=== PATIENT | female | born 1945 ===

== ENCOUNTER → 2016-12-07 | Outpatient (CLI) | payer MEDICARE, BC ==
[~2016-12-07] MED LIST: ADVIL200 MG PO; ALDACTONE25 MG PO; ASCORBIC ACID500 MG PO; BRILINTA90 MG PO; ECOTRIN325 MG PO; FLEXERIL10 MG PO; HYDRODIURIL25 MG PO; LEVOTHROID (SY50 MCG PO; LIPITOR80 MG PO; NITROSTAT0.4 MG SL; NORVASC10 MG PO; PLAVIX75 MG PO; PROTONIX40 MG PO; THERAGRAN-M1 TAB PO; TYLENOL EXTRA500 MG PO; ULTRAM50 MG PO; VITAMIN B-12500 MCG PO; ZEBETA5 MG PO
[2016-12-07 13:23] LABS: ALBUMIN 3.8 gm/dL (3.5-5.0); ALK PHOS 88 IU/L (33-138); ALT 30 IU/L (12-78); ANION GAP 13.7 (10.0-19.0); AST 28 IU/L (10-40); BLOOD UREA NITROGEN 19 mg/dL (6-24); CALCIUM 8.8 mg/dL (8.5-10.5); CHLORIDE 94 mMol/L (96-110); CO2 26 mMol/L (22-32); CPK 97 IU/L (21-215); CREATININE 1.1 mg/dL (0.5-1.1); ESTIMATED GFR (MDRD EQUATION) 49; POTASSIUM 4.7 mMol/L (3.7-5.1); SODIUM 129 mMol/L (135-145); TOTAL BILIRUBIN 0.3 mg/dL (0.0-1.5); TOTAL PROTEIN 8.2 g/dL (6.0-8.4)
== END ==
LOC: LGSOS 12:46
PROVIDERS: Internal Medicine Interventional Cardiology
DX: I10 Essential (primary) hypertension (principal)

== ENCOUNTER → 2016-12-08 | Outpatient (CLI) | payer MEDICARE, BC ==
--- NOTE | ~2016-12-08 | ESTC ---
Cardiac Perfusion Imaging Demographics Patient Name RUTH ANN Awan Gender Female Patient Number [id number] Race Visit Number [id number] Ethnicity Corporate ID Room Number Accession Number [id number] Height 67 inches Date of 1945 Weight 168 pounds Interpreting iKmi King Date of study 12/08/2016 Physician Supervising /SUZANNA King NM Technologist Jovanna Zarate MD Ordering Physician Stress tissue technician Stress ECG Reading Kimi King Nurse Cuong Wang RN Physician The procedure was explained in detail to the patient. Risks, complications and alternative treatments were reviewed. Written consent was obtained. Medications Reviewed with Patient prior to Procedure. Procedure Procedure Type: Nuclear Stress Test:Exercise, Cardiolite Stress Test Procedure Start time: 12/08/2016 09:00 End time: 12/08/2016 09:17 Indications: Shortness of breath. Risk Factors The patient risk factors include:prior PCI on 05/13/2016;treated hypercholesterolemia, treated hypertension, family history of premature CAD, chronic lung disease and dyslipidemia. Conclusions Summary DTS: 7. Inferolateral large,mild to moderate reversible defect. LVEF:79%. Normal WM. Stress Protocols Resting ECG RSR. Pre-stress physical exam: Un changed. Predicted HR: 148 bpm ECG Findings No ECG changes suggestive of ischemia. Arrhythmias Occasional PVCs. Symptoms Fatigue. SOB. Stress Interpretation Duration: 6:49 mins. METs: 7. DP: 23 K. Achieved: 88% MPHR. No chest pain. Reason for termination: Fatigue and SOB. EKG: No ischemia. Occasional PVCs. DTS: 6 (Low risk). Imaging Results High risk findings Summed scores - Summed stress score: 13 - Summed rest score: 1 - Summed difference score: 12 Stress ejection Ejection fraction:80 % EDV :50 ml ESV :10 ml Stroke volume :40 ml LV mass :90 gr LV size:Normal Normal LV function Imaging Protocols Rest Stress Isotope:Tc99m Sestamibi IV Isotope: Tc99m Sestamibi IV Isotope dose:11.5 mCi Isotope dose:32.8 mCi Date:12/08/2016 07:10 Date:12/08/2016 09:07 Technique: SPECT Technique: Gated Supine SPECT Supine Scan Time:45-60 minutes post Scan Time:45-60 minutes post injection injection Medical History Admission Data Admission date: 12/08/2016 Admission Time: 06:29 Hospital Status: Outpatient. Signatures dtt: Christine Bolden dtd: 12/08/16 0900 Physician Self Edit
== END | disposition disaster alternative care site (69) ==
LOC: GRAD 06:29
DX: R06.02 Shortness of breath (principal); E78.00 Pure hypercholesterolemia, unspecified; E78.5 Hyperlipidemia, unspecified; I10 Essential (primary) hypertension; J98.4 Other disorders of lung; Z82.49 Family history of ischemic heart disease and other diseases of the circulatory system
CPT/HCPCS: A9500

== ENCOUNTER → 2016-12-14 | Outpatient (CLI) | payer MEDICARE, BC ==
[2016-12-14 08:28] LABS: ANION GAP 9.9 (10.0-19.0); CALCIUM 8.2 mg/dL (8.5-10.5); POTASSIUM 4.9 mMol/L (3.7-5.1)
== END | disposition disaster alternative care site (69) ==
LOC: LGSOS 08:05
PROVIDERS: Internal Medicine Interventional Cardiology
DX: I25.10 Atherosclerotic heart disease of native coronary artery without angina pectoris (principal)

== ENCOUNTER → 2017-01-05 | Outpatient (CLI) | payer MEDICARE, BC ==
[2017-01-05 12:23] LABS: ANION GAP 9.7 (10.0-19.0); BLOOD UREA NITROGEN 19 mg/dL (6-24); CALCIUM 8.6 mg/dL (8.5-10.5); CHLORIDE 100 mMol/L (96-110); CO2 28 mMol/L (22-32); CREATININE 0.9 mg/dL (0.5-1.1); ESTIMATED GFR (MDRD EQUATION) > 60; POTASSIUM 4.7 mMol/L (3.7-5.1); SODIUM 133 mMol/L (135-145)
== END | disposition disaster alternative care site (69) ==
LOC: LGSOS 11:46
PROVIDERS: Internal Medicine Interventional Cardiology
DX: I25.10 Atherosclerotic heart disease of native coronary artery without angina pectoris (principal)